=== PATIENT | female | born 1965 | race Two or more races ===

== ENCOUNTER 2017-04-21 10:18 | Emergency (ER) | payer OTHER ==
[~2017-04-21] VITALS: Ht 157.5 cm; Wt 69.3 kg
[~2017-04-21 10:18] MED LIST: BACL10TA PO; CIPR500T4 PO; DICL75TA2 PO; FLUT16SP24 NASAL; HYDR-3498 PO; IBUP-1542 PO; ONDA4TAB35 PO
[2017-04-21 10:22] VITALS: Ht 157.5 cm; Wt 69.3 kg
[2017-04-21] MEDS ORDERED: SOD CHLORIDE 0.9% 500 ML IV STA (10:51)
[2017-04-21] MEDS ORDERED: KETOROLAC 30 MG INJ IV STA (10:51)
[2017-04-21] MEDS ORDERED: ACETAMINOPHEN 500 MG TAB PO STA (10:51)
[2017-04-21] MEDS ORDERED: IBUP-1542 PO (12:01)
[2017-04-21] MEDS ORDERED: ACET500C5 PO (12:01)
[2017-04-21] MEDS ORDERED: ONDA4TAB14 PO (12:02)
[2017-04-21] MEDS ORDERED: GUAI-637 PO (12:02)
[2017-04-21] MEDS ORDERED: OSLT75C PO (12:02)
--- NOTE | 2017-04-21 12:18 | RADRPT ---
PROCEDURE: XR Chest. CLINICAL INDICATION: Flu symptoms. TECHNIQUE: Single frontal view of the chest was obtained. COMPARISON: None FINDINGS: The soft tissues are normal. The bony elements are normal. The heart, cardiomediastinal silhouette and hilar structures are normal. The pulmonary vasculature is normal. There is a left-sided aorta. The lungs are clear. The costophrenic angles are normal. IMPRESSION: 1. Normal chest x-ray. RPTAT:AAJJ Physician Ksenia Date Time Electronically viewed and signed by Leif Whitlock Physician on 04/21/2017 12:18 /
--- NOTE | 2017-04-21 12:21 | ERD ---
ER Documentation Chief Complaint Chief Complaint FEVER BODYAHCES SINCE SATURDAY [facility] DRY COUGH HPI Patient is a 51-year-old female presents ED for concerns of flulike symptoms 2 days. Patient states she has had intermittent fevers for last 2 days. Patient denies checking her temperature. Patient also reports a dry cough. Patient states she has a headache. Patient denies any blurry vision, vision loss, photophobia, phonophobia, neck pain or neck stiffness. Patient denies that this is a worse headache of her life. Does admit to generalized body aches. Patient also states she has throat pain however she denies any drooling, trismus or hyperextension of her neck. Patient admits to nausea however she denies any vomiting. Patient states she has a dry cough. Patient denies any chest pain, shortness of breath, abdominal pain or loss of consciousness. Patient denies any recent travel. Patient denies any sick contacts. Patient did not receive the flu vaccination this year. ROS All systems reviewed and are negative except as per history of present illness. Medications Home Meds Active Scripts Oseltamivir Phosphate* (Tamiflu*) 75 Mg Capsule, 75 MG PO BID for 5 Days, CAP Prov:YESENIA CHAO PA-C 04/21/17 Guaifenesin* (Robitussin*) 100 Mg/5 Ml Syrup, 100 MG PO Q4H Y for COUGH, #1 BOTTLE Prov:YESENIA CHAO PA-C 04/21/17 Ondansetron (Ondansetron Odt) 4 Mg Tab.rapdis, 4 MG PO Q6H Y for NAUSEA AND/OR VOMITING, #10 TAB Prov:YESENIA CHAO PA-C 04/21/17 Acetaminophen* (Tylophen*) 500 Mg Capsule, 1 CAP PO Q6H Y for PAIN AND OR ELEVATED TEMP, #20 CAP Prov:YESENIA CHAO PA-C 04/21/17 Ibuprofen* (Motrin*) 600 Mg Tab, 600 MG PO Q6, #20 TAB Prov:YESENIA CHAO PA-C 04/21/17 Hydrocodone Bit-Acetaminophen* (Redmond*) 5-325 Mg Tab, 1 TAB PO Q6 Y for PAIN, # 12 TAB Prov:YAHAIRA HUA MD 01/04/15 Ibuprofen* (Motrin*) 600 Mg Tab, 600 MG PO Q6, #30 TAB Prov:YAHAIRA HUA MD 01/04/15 Ondansetron Hcl* (Zofran* ODT) 4 mg -ODT Tab.disper, 4 MG PO Q6 Y for NAUSEA AND /OR VOMITING, #10 TAB Prov:AMAYA RUSSELL MD 12/02/14 Hydrocodone Bit-Acetaminophen* (Redmond*) 5-325 Mg Tab, 1 TAB PO Q6 Y for PAIN, # 7 TAB Prov:AMAYA RUSSELL MD 12/02/14 Ciprofloxacin Hcl* (Ciprofloxacin Hcl*) 500 Mg Tablet, 500 MG PO BID for 7 Days , TAB Prov:AMAYA RUSSELL MD 12/02/14 Reported Medications Fluticasone Propionate* (Flonase* Nasal) 50 Mcg/Herculaneum - 16 Gm Herculaneum.susp, 1 SPRAY NASAL BID, SPRAY (TO EACH NOSTRIL) 12/02/14 Baclofen* (Baclofen*) 10 Mg Tablet, 10 MG PO QHS, TAB 12/02/14 Diclofenac Sodium* (Diclofenac Sodium*) 75 Mg Tablet.dr, 75 MG PO DAILY, TAB 12/02/14 Allergies Allergies: Coded Allergies: No Known Allergy (Unverified , 12/02/14) PMhx/Soc Medical and Surgical Hx: pt denies Medical Hx, pt denies Surgical Hx History of Surgery: No Anesthesia Reaction: No Hx Neurological Disorder: No Hx Respiratory Disorders: No Hx Cardiac Disorders: No Hx Psychiatric Problems: No Hx Miscellaneous Medical Probl: Yes (CHOLELITHIASIS) Hx Alcohol Use: No Hx Substance Use: No Hx Tobacco Use: No Smoking Status: Never smoker Physical Exam Vitals Vital Signs Date Time Temp Pulse Resp B/P Pulse Ox O2 Delivery O2 Flow Rate FiO2 04/21/17 12:35 101.7 98 20 117/62 93 04/21/17 10:22 102.9 105 18 127/76 98 Physical Exam GENERAL: Well-developed, well-nourished female. Appears in no acute distress. HEAD: Normocephalic, atraumatic. No deformities or ecchymosis. EYE: Pupils equal, round, and reactive to light. EOMs intact. No conjunctival erythema. No eye discharge. ENT: External ear without any masses or tenderness. Auditory canals clear bilaterally. TM visualized bilaterally, non-erythematous, non-bulging. Nasal mucosa pink with no discharge. Oropharynx is erythematous without any tonsillar erythema or exudates. No uvula deviation. No kissing tonsils. NECK: Supple. No meningismus. Normal ROM of the neck. LUNG: Clear to auscultation bilaterally. No rhonchi, wheezing, rales or coarse breath sounds. HEART: Regular rate and rhythm. No murmurs, rubs or gallops. BACK: No midline tenderness. EXTREMITES: Equal pulses bilaterally. No peripheral clubbing, cyanosis or edema. No unilateral leg swelling. NEUROLOGIC: Alert and oriented to person, place and time. Moving all four extremities. 5/5 strength in all extremities. Normal speech. Steady gait. SKIN: Normal color. Warm and dry. No rashes or lesions. Results 24 hrs Current Medications Medications (Trade) Dose Ordered Sig/Katie Route PRN Reason Start Time Stop Time Status Last Admin Dose Admin Sodium Chloride (NS) 500 ml @ 500 mls/hr Q1H STAT IV 04/21/17 10:51 04/21/17 11:50 DC 04/21/17 11:15 Acetaminophen (Tylenol Tab) 1,000 mg ONCE STAT PO 04/21/17 10:51 04/21/17 10:54 DC 04/21/17 11:15 Ketorolac Tromethamine (Toradol) 30 mg ONCE STAT IV 04/21/17 10:51 04/21/17 10:54 DC 04/21/17 11:15 Procedures/MDM ED COURSE: The patient was stable throughout ED course. I kept the patient and/or family informed of laboratory and diagnostic imaging results throughout the ED course. DIAGNOSTIC IMAGING: Read by radiologist. 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 CLINICAL INDICATION: Flu symptoms. TECHNIQUE: Single frontal view of the chest was obtained. COMPARISON: None FINDINGS: The soft tissues are normal. The bony elements are normal. The heart, cardiomediastinal silhouette and hilar structures are normal. The pulmonary vasculature is normal. There is a left-sided aorta. The lungs are clear. The costophrenic angles are normal. IMPRESSION: 1. Normal chest x-ray. RPTAT:AAJJ Physician Ksenia Date Time Electronically viewed and signed by Physician Ksenia on 04/21/2017 12:18 JM/ CC: YESENIA CHAO PA-C PROCEDURES: None. MEDICATIONS GIVEN: IV fluids, Toradol, Tylenol Patient tolerated medication well with no adverse reactions. Patient reported improvement in pain. MEDICAL DECISION MAKING: This is a 51-year-old female presents ED for concerns of flulike symptoms 2 days. Vital signs were reviewed. Patient was febrile at initial presentation with a temperature 102.9F. Patient was given both Toradol and Tylenol here in the ED. Patient's temperature was noted to be downtrending. Patient was not hypoxic. ENT exam was normal. Lung exam was normal. Chest x-ray was unremarkable. Patient's flu swab was positive for influenza A. Given these findings, the patients presentation is most consistent with influenza. I have a much lower clinical concern for bacterial infections including pleural effusion, CHF, pneumonia, meningitis, sinusitis, otitis externa, acute otitis media, strep pharyngitis, epiglottitis or peritonsillar abscess. Low suspicion for sepsis at this time. We will treat the patient with a course of Tamiflu at this time given that she presents within 48 hours of her flulike symptoms onset. Low suspicion for patient requiring inpatient admission at this time. Patient is not immune compromised. Patient was nontoxic, [id number] prior to discharge. PRESCRIPTIONS: Tylenol, ibuprofen, Robitussin, Tamiflu, Zofran DISCHARGE: At this time, patient is stable for discharge and outpatient management. Fever control was advised. Supportive therapies such as OTC throat lozenges, salt water gurgles, popsicles and jello discussed. I have instructed the patient to follow-up with his/her primary care physician in 1-2 days. I have instructed the patient to promptly return to the ER for any new or worsening symptoms including increased pain, swelling, fever, nausea, vomiting, weakness or difficulty breathing. The patient and/or family expressed understanding of and agreement with this plan. All questions were answered. Home care instructions were provided. Disclaimer: Inadvertent spelling and grammatical errors are likely due to EHR/ dictation software use and do not reflect on the overall quality of patient care. Also, please note that the electronic time recorded on this note does not necessarily reflect the actual time of the patient encounter. Departure Diagnosis: Primary Impression: Influenza A Condition: Stable Patient Instructions: Influenza (Adult) Additional Instructions: Call your primary care doctor TOMORROW for an appointment during the next 1-2 days.See the doctor sooner or return here if your condition worsens before your appointment time. YESENIA CHAO PA-C Apr 21, 2017 12:20
[2017-04-21 12:35] VITALS: BP 117/62; PULSE 98; RESP 20; TEMP 101.7
== END 2017-04-21 12:35 | disposition home or self-care (01) ==
LOC: FTE 10:18
DX: J10.1 Influenza due to other identified influenza virus with other respiratory manifestations (principal)
CPT/HCPCS: 71010; 87400; 96374; 99284; J1885; J7040